=== PATIENT | male | born 1975 | race Caucasian/White ===

== ENCOUNTER 2017-05-23 20:00 | Emergency (ER) | payer BC, OTHER ==
[2017-05-23] MEDS ORDERED: Ketorolac 60 MG/2 ML SDV IM ONE (21:08)
[2017-05-23 21:43] VITALS: BP 108/88
--- NOTE | 2017-05-25 09:37 | ER ---
DATE SEEN: 05/23/2017 CHIEF COMPLAINT: Fever. HISTORY OF PRESENT ILLNESS: This is a 41-year-old male with a fever that started on Saturday associated with body aches, myalgias, and joint pain. Symptoms seem to have improved on Saturday but they returned today. He feels like his legs could not support him. They are also associated with headache that is mild to moderate. REVIEW OF SYSTEMS: No rash. No cough or cold symptoms. Denies any sore throat. Weakness of one side. PAST MEDICAL HISTORY: Healthy with no active medical problems. 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 PHYSICAL EXAMINATION: GENERAL: He is not in distress. VITAL SIGNS: His temperature is 100. HEENT: Head is normal size. NECK: Supple. No thyromegaly. Oropharynx is clear. CARDIOVASCULAR: Normal. RESPIRATORY SYSTEM: Clear. ABDOMEN: Soft. NEUROLOGIC: Cranial nerves 2 through 12 are grossly intact. Kernig's negative. Brudzinski negative. LABORATORY DATA: White cell count is 13,000. CK is normal. Creatinine is normal. AST and ALT are slightly elevated. IMPRESSION: Acute febrile illness. PLAN: Ketorolac 60 mg IM, supportive therapy, and fluids. Follow up in the office tomorrow. I did send out a [place] but results will be back for a while. /[id number] CARLITO/ADDI
== END 2017-05-23 21:30 | disposition home or self-care (01) ==
LOC: FB.ED 20:00
DX: R50.9 Fever, unspecified (principal)
CPT/HCPCS: 80053; 82550; 83880; 85025; 99283; J1885; 36415; 86788; 86789; 96372